=== PATIENT | male | born 1955 | race Caucasian/White ===

== ENCOUNTER 2024-02-23 13:32 | Inpatient (IN) | payer MEDICARE, OTHER ==
[~2024-02-23 13:32] MED LIST: Iopamidol-370 76% 500 ML MDV (1 ML CHARGE) ONE
[2024-02-23 13:57] LABS: %Basophils 0.5 % (0.0-1.0); %Eosinophils 0.3 % (0.0-10.0); %Lymphocytes 15.9 % (21.0-51.0); %Monocytes 12.6 % (0.0-10.0); %Neutrophils 70.4 % (42.0-75.0); Hematocrit 48.9 % (42.0-52.0); Hemoglobin 16.7 g/dL (14.0-18.0); Mean Corpuscular HGB CONC 34.2 g/dL (32.0-36.0); Mean Corpuscular Hemoglobin 31.6 pg (27.0-31.0); Mean Corpuscular Volume 92.4 fL (78.0-98.0); Mean Platelet Volume 10.4 fL (7.4-10.4); Platelet Count 209 10x3/uL (130-400); RBC Distribution Width 13.2 % (11.5-14.5); Red Blood Cell (RBC) Count 5.29 mill/uL (4.70-6.10)
[2024-02-23 14:09] LABS: ALT (SGPT) 27 U/L (8-55); AST (SGOT) 26 U/L (5-34); Albumin 3.3 g/dL (3.4-4.8); Alkaline Phosphatase 62 U/L (40-110); Anion Gap 16 mmol/L (10-20); BUN (Urea Nitrogen) 11 mg/dL (8.4-25.7); Bilirubin, Total 3.3 mg/dL (0.2-1.2); Calc. Creatinine Clearance 0 mL/min (70-130); Calcium 9.4 mg/dL (7.8-10.44); Carbon Dioxide 16 mmol/L (23-31); Chloride 104 mmol/L (98-107); Estimated GFR 95; Globulin 4.8 g/dL (2.4-3.5); Glucose 154 mg/dL (83-110); Potassium 4.1 mmol/L (3.5-5.1); Protein, Total 8.1 g/dL (5.8-8.1); Sodium 132 mmol/L (136-145)
[2024-02-23 14:14] LABS: Troponin I 0.173 ng/mL (< 0.028)
[2024-02-23 14:15] LABS: INR-International Normal Ratio 1.2; Prothrombin Time 14.8 sec (12.0-14.7)
[2024-02-23 14:16] LABS: PTT 55.3 sec (22.9-36.1)
[2024-02-23 17:18] LABS: Anion Gap 17 mmol/L (10-20); BUN (Urea Nitrogen) 11 mg/dL (8.4-25.7); Calc. Creatinine Clearance 0 mL/min (70-130); Calcium 9.6 mg/dL (7.8-10.44); Carbon Dioxide 19 mmol/L (23-31); Chloride 101 mmol/L (98-107); Estimated GFR 93; Glucose 143 mg/dL (83-110); Potassium 4.1 mmol/L (3.5-5.1); Sodium 133 mmol/L (136-145)
[2024-02-23 17:23] LABS: Troponin I 0.176 ng/mL (< 0.028)
[2024-02-23] MEDS ORDERED: Ipratropium/Albuterol 3 ML NEB NEB PRN ×2 (18:46→18:51)
[2024-02-23] MEDS: methylPREDNISolone Sod Succ/PF 125 MG/2 ML VIAL IVP SCH (18:52)
[2024-02-23] MEDS ORDERED: Nitroglycerin 0.4 MG TAB (25 Tab Bottle) SL PRN (18:54)
[2024-02-23] MEDS ORDERED: traMADol HCl 50 MG TAB PO PRN (18:56)
[2024-02-23] MEDS ORDERED: Acetaminophen 500 MG TAB PO PRN (18:56)
[2024-02-23] MEDS ORDERED: Magnesium Sulfate 2 GM in Sodium Chloride 0.9% 250 ML 250 ML IVPB SCH (19:00)
[2024-02-23] MEDS: Ipratropium/Albuterol 3 ML NEB NEB SCH (19:05)
[2024-02-23] MEDS: Magnesium 2 GM/50 ML(in water) 2 GM in Premix 1 BAG IVPB SCH (19:21)
[2024-02-23 19:32] VITALS: BMI 26.6
[2024-02-23 19:54] LABS: Actual Bicarbonate (HCO3a) 20.7 mEq/L (22-28); Base Excess (BEa) -1.7 mEq/L (-2.0 to +3.0); CO2 Tension 29.9 mmHg (35.0-45.0); Calcium, Ionized (arterial) 1.18 mmol/L (1.12-1.30); Carboxyhemoglobin (COHb) 0.6 gm% (0.0-3.0); Hematocrit-ABG 49 % (42.0-52.0); Hemoglobin (Hb) 16.8 g/dL (14.0-18.0); O2 Tension (PaO2), arterial 81.2 mmHg (> 70.0); Potassium - ABG Lab 4.11 mmol/L (3.70-5.30); pH, Arterial 7.459 (7.35-7.45)
[2024-02-23 19:55] LABS: ALV-art Gradient 81.065 mmHg (0-20); Puncture Site Right Radial artery
[2024-02-23 20:01] LABS: Hemoglobin A1c 7.6 % (4.0-6.0)
[2024-02-23 20:03] LABS: Magnesium 1.8 mg/dL (1.6-2.6)
[2024-02-23] MEDS ORDERED: Glucagon 1 MG/ML KIT IM PRN (20:24)
[2024-02-23] MEDS ORDERED: Dextrose 50% Abboject 50 ML SYRINGE SLOW IVP PRN (20:24)
[2024-02-23] MEDS ORDERED: Insulin Lispro 100 UNIT/ML 10 ML VIAL SC PRN ×2 (20:24)
[2024-02-23] MEDS ORDERED: Dextrose 5% in Water 1,000 ML IV PRN (20:24)
[2024-02-23] MEDS: cefTRIAXone\\ROCEPHIN 1 GM in Sodium Chloride 0.9% 100 ML IVPB SCH (20:28)
[2024-02-23] MEDS: Heparin 10,000 UNITS/ 10 ML VIAL SLOW IVP SCH (20:49)
[2024-02-23] MEDS: Heparin 25,000 units/D5W 500 ML IVPB SCH (20:49)
[2024-02-23] MEDS: Azithromycin 500 MG in Sodium Chloride 0.9% 250 ML 250 ML IVPB SCH (21:02)
[2024-02-23 21:36] LABS: Influenza A by NAA Not Detected (NotDetected); Influenza B by NAA Not Detected (NotDetected); SARS-CoV-2 NAA Rapid Test Not Detected (NotDetected)
[2024-02-23 23:18] LABS: Bacteria/HPF None Seen HPF (None Seen); Bilirubin Negative (Negative); Blood, Urine Negative (Negative); Clarity Clear (Clear); Glucose, Urine (Dipstick) Greater than 1000 mg/dL (Negative); Ketone, Urine 10 mg/dL (Negative); Leukocyte Negative Leu/uL (Negative); Nitrite Negative (Negative); Protein, Urine (Dipstick) 10 mg/dL (Neg-Trace); RBC/HPF 0-3 HPF (0-3); Specific Gravity, Urine 1.042 (1.002-1.036); Squamous Epithelial None Seen HPF (0-3); Urobilinogen Normal mg/dL (Less than 2); WBC/HPF None Seen HPF (0-3); pH, Urine 5.5 (5.0-9.0)
[2024-02-23] MEDS ORDERED: Acetaminophen 650 MG Suppository PR PRN (23:53)
[2024-02-23] MEDS ORDERED: Acetaminophen 325 MG TAB PO PRN (23:53)
[2024-02-24 03:38] LABS: #Basophils Less than 0.03 10x3/uL (0.0-0.2); #Eosinphils Less than 0.03 10x3/uL (0.0-0.7); %Basophils 0.2 % (0.0-1.0); %Lymphocytes 12.7 % (21.0-51.0); %Monocytes 1.6 % (0.0-10.0); %Neutrophils 85.2 % (42.0-75.0); Hemoglobin 16.5 g/dL (14.0-18.0); Mean Corpuscular HGB CONC 33.7 g/dL (32.0-36.0); Mean Corpuscular Hemoglobin 30.7 pg (27.0-31.0); Mean Corpuscular Volume 91.1 fL (78.0-98.0); Mean Platelet Volume 11.4 fL (7.4-10.4); Platelet Count 197 10x3/uL (130-400); RBC Distribution Width 13.1 % (11.5-14.5); Red Blood Cell (RBC) Count 5.38 mill/uL (4.70-6.10)
[2024-02-24 03:53] LABS: ALT (SGPT) 25 U/L (8-55); AST (SGOT) 23 U/L (5-34); Albumin 3.1 g/dL (3.4-4.8); Alkaline Phosphatase 63 U/L (40-110); Anion Gap 14 mmol/L (10-20); BUN (Urea Nitrogen) 12 mg/dL (8.4-25.7); Bilirubin, Total 1.9 mg/dL (0.2-1.2); Calc. Creatinine Clearance 98 mL/min (70-130); Calcium 9.2 mg/dL (7.8-10.44); Carbon Dioxide 18 mmol/L (23-31); Chloride 108 mmol/L (98-107); Cholesterol 101 mg/dl (< 200 Desired); Estimated GFR 92; Globulin 4.8 g/dL (2.4-3.5); Glucose 289 mg/dL (83-110); HDL Cholesterol 34 mg/dL (>60 Neg Risk); LDL Cholesterol, Calculated 52 mg/dL; Potassium 4.1 mmol/L (3.5-5.1); Protein, Total 7.9 g/dL (5.8-8.1); Sodium 136 mmol/L (136-145); Triglycerides 74 mg/dL (Less than 150)
[2024-02-24 03:56] LABS: Troponin I 0.097 ng/mL (< 0.028)
[2024-02-24] MEDS: Famotidine 20 MG TAB PO SCH (09:56)
[2024-02-24] MEDS: Aspirin 81 mg Enteric Coated Tablet PO SCH (09:56)
[2024-02-24] MEDS: predniSONE 20 MG TAB PO SCH (09:56)
[2024-02-24] MEDS ORDERED: Communication Order-Pharmacy FS SCH (16:45)
[2024-02-24] MEDS: Sodium Chloride 0.9% 1,000 ML IV SCH (17:57)
[2024-02-24] MEDS: Ipratropium/Albuterol 3 ML NEB NEB SCH (18:33)
[2024-02-24] MEDS: Mometasone 100 MCG HFA INHALER (RT USE) INH SCH (18:36)
[2024-02-24] MEDS: metFORMIN 500 MG TAB PO SCH (18:50)
[2024-02-25 06:02] LABS: #Basophils 0.03 10x3/uL (0.0-0.2); %Basophils 0.1 % (0.0-1.0); %Eosinophils 0.2 % (0.0-10.0); %Lymphocytes 12.3 % (21.0-51.0); %Monocytes 9.4 % (0.0-10.0); %Neutrophils 77.5 % (42.0-75.0); Hematocrit 45.9 % (42.0-52.0); Hemoglobin 15.4 g/dL (14.0-18.0); Mean Corpuscular HGB CONC 33.6 g/dL (32.0-36.0); Mean Corpuscular Hemoglobin 31.5 pg (27.0-31.0); Mean Corpuscular Volume 93.9 fL (78.0-98.0); Mean Platelet Volume 11.3 fL (7.4-10.4); Platelet Count 222 10x3/uL (130-400); Red Blood Cell (RBC) Count 4.89 mill/uL (4.70-6.10)
[2024-02-25 06:17] LABS: Anion Gap 15 mmol/L (10-20); BUN (Urea Nitrogen) 15 mg/dL (8.4-25.7); Calc. Creatinine Clearance 112 mL/min (70-130); Calcium 9.1 mg/dL (7.8-10.44); Carbon Dioxide 18 mmol/L (23-31); Chloride 108 mmol/L (98-107); Estimated GFR 96; Glucose 209 mg/dL (83-110); Potassium 4.2 mmol/L (3.5-5.1); Sodium 137 mmol/L (136-145)
[2024-02-25] MEDS: Rosuvastatin 10 MG TAB PO SCH (06:28)
[2024-02-25] MEDS: CO Q-10 CAPSULE 50 MG PO SCH (06:28)
[2024-02-25] MEDS: Pantoprazole DR 40 MG TAB PO SCH (06:28)
[2024-02-25] MEDS: Lisinopril 10 MG TAB PO SCH (06:28)
[2024-02-25] MEDS ORDERED: Verapamil 5 MG/2 ML VIAL ONE (08:19)
[2024-02-25] MEDS ORDERED: Adenosine 6 mg (2 mL) VIAL ONE (08:19)
[2024-02-25] MEDS ORDERED: Heparin 10,000 UNITS/ 10 ML VIAL ONE (08:19)
[2024-02-25] MEDS ORDERED: Nitroglycerin 50 MG/250 ML BOT 250 ML ONE (08:19)
[2024-02-25] MEDS ORDERED: fentaNYL 50 mcg/mL 1 mL Vial ONE (08:23)
[2024-02-25] MEDS ORDERED: Midazolam HCl 2 mg/2 ml Vial ONE (08:23)
[2024-02-25] MEDS ORDERED: Non-Formulary Item 1 EACH (Fluticasone/Umeclidin/Vilanter [Trelegy Ellipta 200-62.5-25] 1 INH SCH (09:00)
[2024-02-25] MEDS ORDERED: Sodium Chloride 0.9% 200 ML IV PRN (09:26)
[2024-02-25] MEDS ORDERED: Nitroglycerin 0.4 MG TAB (25 Tab Bottle) SL PRN (09:26)
[2024-02-25] MEDS ORDERED: Acetaminophen/Codeine 30-300mg Tablet PO PRN ×2 (09:26)
[2024-02-25] MEDS ORDERED: Iopamidol 370 76% 100 ML VIAL ONE (10:13)
[2024-02-25] MEDS: Sodium Chloride 0.9% 1,000 ML IV SCH (10:50)
[2024-02-25] MEDS: metFORMIN 500 MG TAB PO SCH (13:04)
[2024-02-25] MEDS: Cefdinir 300 MG CAP PO SCH (20:35)
[2024-02-25] MEDS: Azithromycin 250 MG TAB PO SCH (20:35)
[2024-02-25] MEDS: Benzocaine/Menthol 1 LOZ LOZ PO PRN (20:37)
[2024-02-26 12:20] VITALS: TEMP 98.1
[2024-02-26 13:32] VITALS: BP 151/74
[2024-02-26] MEDS ORDERED: Atorvastatin Calcium 40 MG TAB PO SCH (21:00)
== END 2024-02-26 13:35 | disposition home or self-care (01) | DRG 280 ==
LOC: ERS 13:32 → 2SW 15:57 → OBSVTOIN 02-24 09:32
PROVIDERS: ADMIT Internal Medicine; ATTEND Hospitalist
PROC: 4A033R1 Measurement of Arterial Saturation, Peripheral, Percutaneous Approach (ICD-10-PCS; 2024-02-23)
PROC: 4A023N7 Measurement of Cardiac Sampling and Pressure, Left Heart, Percutaneous Approach (ICD-10-PCS; principal; 2024-02-25)
PROC: B2111ZZ Fluoroscopy of Multiple Coronary Arteries using Low Osmolar Contrast (ICD-10-PCS; 2024-02-25)
PROC: B2151ZZ Fluoroscopy of Left Heart using Low Osmolar Contrast (ICD-10-PCS; 2024-02-25)
DX: I25.10 Atherosclerotic heart disease of native coronary artery without angina pectoris (principal); J96.00 Acute respiratory failure, unspecified whether with hypoxia or hypercapnia; I21.A1 Myocardial infarction type 2; J44.1 Chronic obstructive pulmonary disease with (acute) exacerbation; Z66 Do not resuscitate; I10 Essential (primary) hypertension; E78.5 Hyperlipidemia, unspecified; E11.9 Type 2 diabetes mellitus without complications; J30.1 Allergic rhinitis due to pollen; R91.8 Other nonspecific abnormal finding of lung field; Z87.891 Personal history of nicotine dependence
CPT/HCPCS: 36415; 36416; 36600; 71275; 80048; 80053; 80061; 81001; 82805; 83036; 83605; 83735; 83880; 84443; 84484; 85025; 85610; 85730; 87633; 87798; 93005; 93010; 93458; 93798; 94640; 96374; 96375; 96376; 97139; 99152; C1769; C1894; G0378; J0153; J0456; J0696; J1644; J1815; J2250; J2919; J3010; J3475; J7030; J7050; J7512; J7620; Q9967